=== PATIENT | female | born 1975 | race African-American/Black ===

== ENCOUNTER 2020-11-19 08:49 | Outpatient (CLI) | payer BC, SELFPAY ==
--- NOTE | ~2020-11-19 | MR_ITS ---
EXAMINATION: MR knee LT wo con DATE: 11/19/2020 09:54 INDICATION: Left knee pain TECHNIQUE: Magnetic resonance imaging (MRI) of the left knee was performed without intravenous contra st. Sequences included coronal PD-weighted FSE, coronal PD-weighted FS FSE, sagittal T2-weighted FSE , sagittal PD-weighted FS FSE and axial PD weighted fat saturated FSE. COMPARISON: None. FINDINGS: Medial compartment: Medial meniscus is normal. Articular cartilage is normal. Lateral compartment: Lateral meniscus is normal. Articular cartilage is normal. Patellofemoral compartment: Diffuse partial thickness chondral ulceration at the caudal two thirds of the patella with deep chond ral fissuring involving greater than 50% the cartilage thickness but without degenerative subchondral changes at the central aspect of the apical ridge. Juxtaposed chondral ulceration and deep fissuring at the trochlear groove and extending medially across the central aspect of the medial trochlea wher e there is underlying mild subarticular edema, cortical irregularity and developing subarticular cyst ic change. Ligaments and tendons: Posterior cruciate ligament is normal. The anterior cruciate ligament demonstrates a normal angle rel ative to Blumenstaat's line but the proximal to mid ligament appears thickened with increased intrasu bstance signal surrounding intact appearing linear fibers with a celery stalk appearance consistent with mucoid degeneration. Mild cystic changes at its osseous attachment along the underlying tibial eminence and at the roof of the intercondylar notch. The medial collateral ligament and fibular colla teral ligament complex are normal. The extensor mechanism is normal. The visualized medial and latera l hamstring tendons as well as the iliotibial band are normal. Fluid: Small amount of fluid in the medial and lateral gutters of the suprapatellar pouch which remains with in normal limits. No loose osteochondral bodies identified. Small Rosado's cyst. Osseous/other: Bone alignment is normal. No fracture or pathologic marrow replacing process. IMPRESSION: 1. Prominent mucoid degeneration without discrete tear of the anterior cruciate ligament. Correlate w ith physical exam to assess degree of functional integrity. 2. 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 3. Small Rosado's cyst. Reviewed, dictated and finalized at location A. IMPRESSION: 1. Prominent mucoid degeneration without discrete tear of the anterior cruciate ligament. Correlate with physical exam to assess degree of functional integrit y. 2. Mild patellofemoral osteoarthritis with moderate grade patellar chondromalac ia and moderate to high-grade trochlear chondromalacia. 3. Small Rosado's cyst.
== END 2020-11-19 08:50 | disposition home or self-care (01) ==
LOC: ANHIMG 09:01
PROVIDERS: PCP Internal Medicine; Visit Provider Orthopaedic Surgery
DX: M17.12 Unilateral primary osteoarthritis, left knee (principal)
CPT/HCPCS: 73721

== ENCOUNTER → 2022-01-02 15:09 | Outpatient (CLI) | payer BC, SELFPAY ==
--- NOTE | ~2022-01-02 | CT_ITS ---
EXAMINATION: CT abdomen pelvis wo/w con DATE: 01/02/2022 15:46 INDICATION: Intra-abdominal and pelvic swelling. TECHNIQUE: Computed tomography (CT) of the abdomen and pelvis was performed without and with with 100 cc Omnipaque 350 intravenous contrast. The dose-length product was 1876.12 mGy-cm. Automated exposur e control and iterative reconstruction technique were employed. COMPARISON: CT dated 10/04/2015. FINDINGS: Lung bases are unremarkable. No significant pleural or pericardial effusion. There are smal l nonobstructing bilateral renal stones measuring 3 mm or less. Nonobstructive bowel gas pattern. No significant vascular abnormality. No lymphadenopathy. Small fat-containing umbilical hernia. The liver, spleen, pancreas, adrenal glands are unremarkable. Gallbladder is present. No free air or free fluid. No abnormal pelvic masses or fluid collections. Normal appendix. No acute osseous abnorma lity. No soft tissue abnormalities. IMPRESSION: 1. Nonobstructing bilateral nephrolithiasis. 2: Small fat-containing umbilical hernia. Reviewed, dictated and finalized at location B.
[2022-01-02 15:35] LABS: Estimated Glomerular Filt Rate > 60
== END ==
PROVIDERS: PCP Emergency Medicine; Visit Provider Emergency Medicine
DX: N20.0 Calculus of kidney (principal); K42.9 Umbilical hernia without obstruction or gangrene
CPT/HCPCS: 74178; Q9967

== ENCOUNTER 2022-01-29 15:00 | Outpatient (CLI) | payer BC, SELFPAY ==
[2022-01-29 15:28] LABS: Hematocrit 41.4 % (37.0-47.0); Mean Corpuscular HGB Conc 31.4 g/dl (32-36); Mean Corpuscular Hemoglobin 25.3 pg (26-34); Mean Corpuscular Volume 80.5 fl (80-100); Mean Platelet Volume 11.3 fl (7.4-10.4); Platelet Count Result 328 k/mm3 (150-375); Red Blood Count 5.14 M/mm3 (4.2-5.4); Red Cell Distribution Width 14.6 % (11.5-14.5); White Blood Count 6.9 K/mm3 (4.5-10.0)
[2022-01-29 15:37] LABS: Anion Gap 13 mmol/L (8-16); Blood Urea Nitrogen 20 mg/dL (7-17); Carbon Dioxide 26 mmol/L (22-30); Chloride 104 mmol/L (98-107); Estimated Glomerular Filt Rate > 60; Glucose 94 mg/dL (65-110); Hemoglobin A1C 5.4 % (<5.7); Potassium 3.7 mmol/L (3.4-5.0); Sodium 143 mmol/L (137-145)
[2022-01-29 15:40] LABS: Alanine Aminotransferase 22 U/L (6-35); Albumin Level 4.8 g/dL (3.5-5.1); Alkaline Phosphatase 82 U/L (38-126); Anion Gap 12 mmol/L (8-16); Aspartate Amino Transferase 26 U/L (14-36); Bilirubin,Total 0.4 mg/dL (0.2-1.3); Blood Urea Nitrogen 20 mg/dL (7-17); Carbon Dioxide 24 mmol/L (22-30); Chloride 105 mmol/L (98-107); Cholesterol 182 mg/dL (0-200); Estimated Glomerular Filt Rate > 60; Glucose 92 mg/dL (65-110); HDL Direct 80 mg/dL; Potassium 3.8 mmol/L (3.4-5.0); Sodium 141 mmol/L (137-145); Triglycerides 146 mg/dL (<150)
[2022-01-29 15:47] LABS: Schistocytes None Seen (NORMAL)
[2022-01-29 15:49] LABS: Platelet Estimate Adequate (Adequate)
[2022-01-29 15:51] LABS: LDL Cholesterol Direct 62 mg/dL
[2022-01-30 09:51] LABS: Basophils Percent Auto 0.4 % (0.2-1.2); Eosinophils Percent Auto 0.4 % (0-4.4); Immature Granulocyte Absolute 0.02 K/mm3 (0.00-0.031); Immature Granulocyte Percent A 0.3 % (0-0.5); Lymphocytes Absolute Auto 2.28 K/mm3 (0.9-3.2); Lymphocytes Percent Auto 33.3 % (18.3-44.2); Monocytes Absolute Auto 0.6 K/mm3 (0.1-0.6); Neutrophils Absolute Auto 3.9 K/mm3 (1.3-6.7); Neutrophils Percent Auto 57.6 % (45.5-73.1)
== END 2022-01-29 15:01 | disposition home or self-care (01) ==
LOC: ANHLAB 15:01
PROVIDERS: Anesthesiology; PCP Emergency Medicine; Visit Provider Emergency Medicine
DX: I10 Essential (primary) hypertension (principal); D64.9 Anemia, unspecified; E66.01 Morbid (severe) obesity due to excess calories; R19.00 Intra-abdominal and pelvic swelling, mass and lump, unspecified site
CPT/HCPCS: 36415; 80048; 80053; 80061; 83036; 85014; 85018; 85025

== ENCOUNTER 2022-01-31 00:28 | Day surgery (SDC) | payer BC, SELFPAY ==
--- NOTE | 2022-01-26 15:34 | PC.NURSE ---
Report to the Outpatient Waiting Room, entrance under the green pavilion located off [facility], at time _1000 on date __01/31/22 . Planned Procedure Time: __1200 . Time changes happen often and if your time is changed the preop area will call you the afternoon before. - You and your visitor will be asked to self-screen and do not enter if you have any COVID symptoms. - We encourage only one visitor and NO visitors under age 16 are allowed at this time. Your visitor will receive communication by the phone number that is given day of service. - The patient visitor is requested to social distance or may leave the building when not with patient due to restrictions. - A mask is required within the hospital. Patients may have clear liquids (water, carbonated beverages, clear teas, apple juice) until 3 hours prior to surgery with a maximum of 20 ounces. - No food from midnight until time of surgery - Infants may have breast milk until 4 hours before surgery, formula 6 hours prior to surgery. - Children will be allowed to drink immediately following surgery. If applicable, please bring a bottle or sippy cup to assist with drinking. Juice, water, soda, and popsicles are readily available. For infants on formula, please bring formula the day of surgery. Pacifiers are allowed. Take the following medications with a SIP of water the morning of surgery: __AMLODIPINE_,BUSPIRONE Medications to discontinue per physician ___ALL VITAMINS AND SUPPLEMENTS 3 DAYS PRE OP Date to take last dose____01/27/22 Please no make-up, nail urdu, hairspray, perfume, deodorant, or body powder the day of surgery. No jewelry (including any body piercings) or valuables the day of surgery, leave them at home. Please take a shower or bath the night before, or the morning of, surgery with an antibacterial soap. Wear comfortable, loose fitting clothing. Children are encouraged to wear pajamas. - Jewelry must be removed prior to entering the operating room. Rings and piercings that are not removed may be cut off. - The hospital will not accept responsibility for valuables. - Please leave all valuables, including medications, at home the day of surgery. If you are going home after surgery, a licensed recycling collections driver must drive you home. - NO public transportation without another adult. - We recommend that an adult stay with you for 24 hours following discharge. - We also recommend that you do not drive, make important decision, drink alcoholic beverages, or take any drugs that were not prescribed by your health care provider for at least 24 hours after your discharge time. For Pediatric surgeries, we recommend two adults accompany the child home. Follow any additional instructions given to you from your surgeon. If you or anyone in your household have experienced Covid symptoms in the past week, please notify your surgeon or the nurse liaison at the phone number below for possible testing. Telephone instructions given to ___PATIENT and asked if any additional questions and then verbalized understanding. Patient advised to call surgeon office or pre surgery nurse liaison [phone] if any additional questions.
[2022-01-26 15:45] VITALS: BMI 42.3
[2022-01-31 10:27] VITALS: BP 145/93; PULSE 70; RESP 16; TEMP 36.2; O2SAT 99
[2022-01-31] MEDS: LACTATED RINGERS 1,000 ML 30 ML IV CONT (10:42)
--- NOTE | 2022-01-31 11:25 | WPDHPUPDATE1 ---
History and Physical Update Update Date/Time: 01/31/22 11:25 History and Physical has been reviewed, including an updated exam of the patient. There are NO changes in the patient's condition. Risks, benefits, and alternatives have been discussed and questions answered. Patient agrees to proceed with procedure.
--- NOTE | 2022-01-31 11:44 | WPDANESEPPF ---
Anes - Initial Pre Proc Eval Procedure: Operation Date: 01/31/22 12:00 Proposed Procedures p Excision Subcutaneous Mass Right Lateral Abdomen - Tani Nelson MD Date/Time: 01/31/22 11:44 Surgeon: Tani Nelson MD Pre Op Diagnosis: Subcutaneous Mass Abdominal Wall Patient Data Age: 46 Gender: F Height: 1.59 m Weight: 105.7 kg Last Vital Signs Temp 97.1 F L 01/31/22 10:27 Pulse 70 01/31/22 10:27 Resp 16 01/31/22 10:27 BP 145/93 H 01/31/22 10:27 Pulse Ox 99 01/31/22 10:27 O2 Del Method Room Air 01/31/22 10:27 Allergies Allergy/AdvReac Type Severity Reaction Status Date / Time Sulfa (Sulfonamide Allergy Mild Rash Verified 01/31/22 10:12 Antibiotics) NSAIDS (Non-Steroidal Allergy Unknown RASH, Verified 01/31/22 10:12 Anti-Inflamma STOMACH CRAMPS morphine AdvReac Intermediate NAUSEA Verified 01/31/22 10:12 VOMITING AND LEROY ibuprofen AdvReac Unknown N/V/D, RASH Verified 01/31/22 10:12 Home Medications Medication Instructions Recorded Confirmed Type acyclovir 5 % topical cream 1 applic topical .COMPLEX 12/26/21 01/27/22 History amlodipine 2.5 mg tablet 2.5 mg PO DAILY 12/26/21 01/27/22 History bupropion HCl 300 mg 24 hr tablet, 300 mg PO QAM 12/26/21 01/27/22 History extended release cholecalciferol (vitamin D3) 50 50 mcg PO DAILY 12/26/21 01/27/22 History mcg (2,000 unit) capsule citalopram 40 mg tablet 40 mg PO DAILY 12/26/21 01/27/22 History cyanocobalamin (vitamin B-12) 100 mcg subcut MONTHLY 12/26/21 01/27/22 History 1,000 mcg/mL injection solution cyclobenzaprine 10 mg tablet 10 mg PO QHS 12/26/21 01/27/22 History diclofenac sodium 1 % topical gel 2 g topical QID 12/26/21 01/27/22 History (Voltaren Arthritis Pain) dicyclomine 10 mg capsule 10 mg PO QID PRN IBS 12/26/21 01/27/22 History ferrous sulfate 325 mg (65 mg 325 mg PO DAILY 12/26/21 01/27/22 History iron) tablet gabapentin 300 mg capsule 300 mg PO TID 12/26/21 01/27/22 History glatiramer 40 mg/mL subcutaneous 40 mg subcut 3XW 12/26/21 01/27/22 History syringe (Glatopa) hydroxychloroquine 200 mg tablet 200 mg PO BID 12/26/21 01/27/22 History lisinopril 40 mg tablet 40 mg PO DAILY 12/26/21 01/27/22 History magnesium 250 mg tablet 250 mg PO DAILY 12/26/21 01/27/22 History metoclopramide HCl 10 mg tablet 10 mg PO BID 12/26/21 01/27/22 History modafinil 200 mg tablet 200 mg PO QAM 12/26/21 01/27/22 History multivitamin 1 tablet PO DAILY 12/26/21 01/27/22 History omeprazole 40 mg capsule,delayed 40 mg PO DAILY 12/26/21 01/27/22 History release oxycodone-acetaminophen 10 mg-325 1 tablet PO Q6H PRN Pain 12/26/21 01/27/22 History mg tablet potassium gluconate 595 mg (99 mg) 595 mg PO DAILY 12/26/21 01/27/22 History tablet spironolactone 25 mg tablet 25 mg PO DAILY 12/26/21 01/27/22 History sumatriptan succinate 100 mg tablet See Rx Instructions PO .COMPLEX 12/26/21 01/27/22 History tamsulosin 0.4 mg capsule 0.4 mg PO DAILY 12/26/21 01/27/22 History trazodone 50 mg tablet 50 mg PO DAILY 12/26/21 01/27/22 History valacyclovir 1 gram tablet 1,000 mg PO DAILY 12/26/21 01/27/22 History baclofen 10 mg tablet 10 mg PO TID PRN muscle spasm #90 01/02/22 01/27/22 Rx tabs buspirone 10 mg tablet 10 mg PO BID #60 tabs 01/02/22 01/27/22 Rx Patient hx anesthesia problems: none Family hx anesthesia problems: none Results Review: All pre-operative results and documents have been reviewed as part of the pre-operative evaluation. [facility] Past Medical History Medical History Anxiety delivery delivered (~1999) delivery delivered (~2005) Chronic pain Depression History of lumbar puncture (~06/2021) Dr.John Mistry Hypertension Irritable bowel syndrome Migraines Mild scoliosis Multiple sclerosis Nephrolithiasis Peptic ulcer Rheumatoid arthritis Rotator cuff arthropathy of right shoulder (~2018)
[2022-01-31] MEDS: BUPIVACAINE/EPINEPHRINE 0.25% 50 ML VIAL 30 ML INFILTRATE (12:52)
[2022-01-31 13:18] VITALS: BP 128/86; PULSE 74; RESP 16; O2SAT 98
[2022-01-31 13:50] VITALS: BP 145/98; PULSE 66; RESP 18
--- NOTE | 2022-01-31 13:59 | W.PM.PROC2 ---
Procedure Note - Detailed Date of Procedure 01/31/22 Pre-op Diagnosis Subcutaneous mass right lateral abdominal wall Post-op Diagnosis Same Procedure Performed Excision of the right lateral abdominal subcutaneous mass Surgeon Tani Nelson MD Manager Of Environmental Services none Anesthesia Local Indications Tender small subcutaneous mass along the upper lateral right abdomen. This has been getting more sore over the last 2 months and is not improving. Findings Some subcutaneous fat versus lipoma that is more nodular than the surrounding soft fat. Description of Procedure The patient was brought to the operating room and after induction of adequate G IV S via LMA the patient was position on the operating table. The patient was placed in the supine position rotated slightly toward her left to expose the area of the subcutaneous mass. After a surgical time out confirming patient and procedure the patient was prepped and draped in the usual sterile fashion. Local anesthetic using 0.25% Marcaine with epinephrine was administered subcutaneously but just under the skin.. This was allowed to work for about 30 seconds and then incision was made directly over the palpable subcutaneous mass. A direct incision was made over the palpable lesion which felt like a small hard marble under the skin about 1 cm deep.. I dissected down to the deep subcutaneous tissues and then completely excised the lesion. After dissecting around it the palpable nodule was grasped with an Allis forceps and then we dissected with Bovie cautery around and beneath it and took it out. Within the fatty tissue there was a palpable harder area of fat or scar tissue and Ben stitch of 3-0 nylon was placed on this site to guide the pathologist as to what I thought was causing her problem. Bleeding was controlled with electrocautery. The wound was closed in two layers. First 3 interrupted un-dyed 3-0 Vicryl deep dermal sutures were placed and then a 4-0 undyed Monocryl running subcuticular closure was completed. Surgical glue applied as dressing. Patient tolerated this well. Implants none Estimated Blood Loss -5.0 Drains No Pathology Yes (Suspected lipoma or fibrotic nodule surrounded by normal subcutaneous fat) Complications No immediate complications Condition Stable Disposition Same day [facility] Billing Surgery - Charge Forward: Surgery Billing (Excision of subcutaneous nodule right lateral abdominal wall)
== END 2022-01-31 14:04 | disposition home or self-care (01) ==
PROVIDERS: PCP Emergency Medicine; Visit Provider Surgery
PROC: (CPT 22903; principal; 2022-01-31 12:00)
DX: M79.89 Other specified soft tissue disorders (principal); I10 Essential (primary) hypertension; G35 Multiple sclerosis; M06.9 Rheumatoid arthritis, unspecified; F41.9 Anxiety disorder, unspecified; F32.A Depression, unspecified; G47.30 Sleep apnea, unspecified; Z87.891 Personal history of nicotine dependence; E66.01 Morbid (severe) obesity due to excess calories; Z68.41 Body mass index [BMI] 40.0-44.9, adult
CPT/HCPCS: 22903; 88304; J1100; J2250; J2405; J2704; J3010; J7120